=== PATIENT | male | born 1940 | race Caucasian/White ===

== ENCOUNTER 2019-03-27 08:23 | Day surgery (SDC) | payer OTHER, SELFPAY ==
[2019-03-27] VITALS (8 sets, daily range): BP systolic 93–123; BP diastolic 63–81; PULSE 76–101; RESP 15–21; TEMP 35.8–36.7; O2SAT 94–98; BMI 27.8
--- NOTE | 2019-03-27 | PATH_ITS ---
[facility] Accession Number: [id number] . 01 Material submitted: . PART A: colon - POLYPS TRANSVERSE COLON PART B: colon - POLYP DESCENDING COLON . 02 Diagnosis: A. Transverse Colon, Polyps, Biopsies: Tubular adenomas. . B. Descending Colon, Polyp, Biopsy: Tubular adenoma. [facility] 03/28/2019 1327 Local . 02 Electronically signed: . Sujatha Reyna MD, Pathologist NPI- [id number] . 01 Gross description: . Part A: POLYPS TRANSVERSE COLON: Received in formalin are 4 fragment(s) of johnson, soft tissue measuring 0.1 x 0.1 x 0.1 cm to 0.3 x 0.2 x 0.2 cm which is entirely submitted and submitted entirely in 1 cassette(s) Part B: POLYP DESCENDING COLON: Received in formalin is 1 fragment(s) of johnson, soft tissue measuring 0.2 x 0.2 x 0.2 cm which is entirely submitted and submitted entirely in 1 cassette(s) /[facility] [place] [facility] [place] 03/27/2019 1911 Local . 02 Pathologist provided ICD-10: D12.3, D12.4 . 02 CPT . 935868, 247016 Performed at: 01 [facility] [address], [place], [place] [id number] MD Kenan Boyd MD Phone: [phone] Performed at: 02 [facility] [address] [place], [place] [id number] MD Sujatha Reyna MD Phone: [phone]
[2019-03-27] MEDS: SODIUM CHLORIDE 0.9% 1,000 ML 42 ML IV (09:09)
--- NOTE | 2019-03-27 09:18 | P.HP_ITS ---
History of Present Illness History of Present Illness Date Patient Seen: 03/27/19 Time Patient Seen: 09:18 Chief complaint: [id number] Narrative: History of adenomatous colon polyps Patient History Social History household members: spouse Family & Social History Social History: household members spouse Meds Home Medications and Allergies Home Medications Medication Instructions Recorded Confirmed Type Epivir HBV 100 mg PO DAILY 03/27/19 03/27/19 History Multiple Vitamin-Minerals 1 cap PO DAILY 03/27/19 03/27/19 History aspirin [Aspir-81] 81 mg PO DAILY 03/27/19 03/27/19 History flaxseed oil 1,000 mg PO DAILY 03/27/19 03/27/19 History [id number] 1 cap PO DAILY 03/27/19 03/27/19 History simvastatin 10 mg PO QPM 03/27/19 03/27/19 History Allergies Allergy/AdvReac Type Severity Reaction Status Date / Time No Known Drug Allergies Allergy Verified 03/27/19 08:47 Exam Vital Signs (past 8 hours): - 03/27/19 08:54 Temperature 98.1 F Pulse Rate 89 Respiratory Rate 15 Blood Pressure 123/78 Pulse Oximetry 98 Oxygen Delivery Method Room Air Narrative Exam Narrative: Oropharynx free of lesions Chest clear to auscultation percussion Cardiac exam reveals no S3 or murmur Assessment & Plan Assessment & Plan narrative: History of adenomatous colon polyps need for fo llow-up colonoscopy. Risks, benefits, alternatives have been explained. Further recommendations will follow the results of that study.
--- NOTE | 2019-03-27 09:19 | PM.OP.ENDO ---
Operative Date/Time/Diagnoses Date of procedure: 03/27/19 Time of procedure: 09:19 Pre-op diagnosis: See indication and findings Procedure & Clinicians Study performed: Colonoscopy Same procedure as scheduled: Yes Indications: History of adenomatous colon polyps Surgeon: Samuel Moeller Procedure Notes Procedure in detail: After informed consent was obtained the patient was placed in left lateral decubitus position. The video colonoscope was introduced the rectum slowly advanced to the cecum. On slow withdrawal mucosa was carefully examined. The scope was removed. The patient tolerated the procedure well. Blood loss none Complications none Sedation Total sedation time 18 minutes Versed 2 mg fentanyl 100 micro g IV titration Findings 1. Sigmoid diverticulosis 2. Two polyps in the transverse colon smaller of the 2 Jumbo biopsy removed completely. The larger which was 6 mm was cold snared and removed completely. 3. One polyp in the descending colon 4 mm, Jumbo biopsy removed completely. We will follow up on pathology to lluvia rosas. He will not need follow-up colonoscopy in the future due to his age.
[2019-03-27] MEDS: fentaNYL 250 MCG/5 ML INJ IV (09:39)
[2019-03-27] MEDS: MIDAZOLAM 5 MG/5 ML VIAL IV (09:43)
--- NOTE | 2019-03-27 09:45 | SUR.OPER ---
COLOR REMAINED PINK THROUGH OUT CASE
--- NOTE | 2019-03-27 09:57 | SUR.OPER ---
EKG SHOWED PACS AND FIBRILLATION
== END 2019-03-27 11:02 | disposition home or self-care (01) ==
PROVIDERS: Visit Provider Internal Medicine Gastroenterology
PROC: 0DJD8ZZ Inspection of Lower Intestinal Tract, Via Natural or Artificial Opening Endoscopic (ICD-10-PCS; CPT 45378; principal; 2019-03-27 09:30)
DX: Z86.010 Personal history of colon polyps (principal); Z98.0 Intestinal bypass and anastomosis status; K57.30 Diverticulosis of large intestine without perforation or abscess without bleeding; D12.3 Benign neoplasm of transverse colon; D12.4 Benign neoplasm of descending colon
CPT/HCPCS: 45385; 45380; J2250; J3010